=== PATIENT | female | born 1995 | race African-American/Black ===

== ENCOUNTER 2019-01-16 08:56 | Emergency (ER) | payer MEDICAID ==
[~2019-01-16] VITALS: Ht 172.7 cm; Wt 74.0 kg
[2019-01-16 09:23] VITALS: BP 148/72
== END 2019-01-16 09:58 | disposition left against medical advice (07) ==
LOC: ER 08:56
DX: Z53.21 Procedure and treatment not carried out due to patient leaving prior to being seen by health care provider (principal)